=== PATIENT | male | born 1990 | race Caucasian/White ===

== ENCOUNTER 2016-11-26 04:13 | Emergency (ER) | payer OTHER, BC ==
[2016-11-26] MEDS ORDERED: Diphtheria,Pertussis(Acell),Tetanus Vaccine 0.5 ML SDV IM ONE (05:01)
[2016-11-26 05:20] VITALS: BP 128/68
--- NOTE | 2016-11-27 01:45 | ER ---
DATE SEEN: 11/26/2016 CHIEF COMPLAINT: Burn. HISTORY OF PRESENT ILLNESS: This is a 26-year-old male, who had a chemical burn at work on the right thumb. He was trying to open a huge bottle of nitrous oxide and had nitric acid chemical burn. Called Poison Control. They advised him to flush it and he did it for 15-20 minutes. He has no pain but he came for evaluation. PAST MEDICAL HISTORY: No known allergies. IMMUNIZATION: He does not remember his last tetanus. MEDICATIONS: Reviewed. ALLERGIES: Reviewed. PHYSICAL EXAMINATION: GENERAL: Not in distress. He is afebrile. VITAL SIGNS: Blood pressure 128/68. EXTREMITIES: Right thumb showed mild yellowness and discoloration of the thumb and the pulp but he has no tenderness. No discharge or drainage. IMPRESSION: Mild chemical burn to the right thumb. PLAN: Reassurance. Continue flushing p.r.n. Use Tylenol as needed. Tetanus was updated. The patient advised to follow up with PCP in a week. /[id number] BLAYNE/KUNAL
== END 2016-11-26 05:05 | disposition home or self-care (01) ==
LOC: FB.ED 04:13
DX: T54.2X1A Toxic effect of corrosive acids and acid-like substances, accidental (unintentional), initial encounter (principal); T23.411A Corrosion of unspecified degree of right thumb (nail), initial encounter; Z23 Encounter for immunization; Y92.69 Other specified industrial and construction area as the place of occurrence of the external cause; Y99.0 Civilian activity done for income or pay
CPT/HCPCS: 90715; 96372; 99283